=== PATIENT | male | born 1960 | race Caucasian/White ===

== ENCOUNTER 2016-12-23 | Emergency (ER) | payer OTHER ==
[~2016-12-23] VITALS: Ht 162.6 cm; Wt 67.1 kg
[2016-12-23 00:42] LABS: BASOPHIL % 0.7 % (0-2); PLATELET COUNT 308 x10^3mcL (130-400)
[2016-12-23 01:01] LABS: CALCIUM 8.3 mg/dL (8.5-10.1); CARBON DIOXIDE 33.4 mmol/L (21-32); CHLORIDE SERUM 103 mmol/L (98-107); CREATININE SERUM 0.8 mg/dL (0.7-1.3); GFR1 > 60 mL/min; GLUCOSE SERUM 101 mg/dL (74-106); POTASSIUM SERUM 3.3 mmol/L (3.5-5.1); SODIUM SERUM 140 mmol/L (136-145)
[2016-12-23 01:06] LABS: ALKALINE PHOSPHATASE 101 U/L (46-116); ALT/SGPT 17 U/L (16-63); AST/SGOT 17 U/L (15-37); BILIRUBIN TOTAL 0.28 mg/dL (0.20-1.00); TOTAL PROTEIN, SERUM 6.7 g/dL (6.4-8.2)
[2016-12-23 01:10] LABS: ALBUMIN 3.1 g/dL (3.4-5.0)
[2016-12-23 01:19] LABS: AMPHETAMINE QUAL UR NONE DETECTED (NEG <=1000)
[2016-12-23 02:57] VITALS: BP 136/86
== END 2016-12-23 02:57 | disposition home or self-care (01) ==
LOC: ED
PROVIDERS: Emergency Medicine
DX: F32.9 Major depressive disorder, single episode, unspecified (principal)
CPT/HCPCS: 80307; G0480